=== PATIENT | male | born 1980 | race Caucasian/White ===

== ENCOUNTER → 2016-08-22 | Outpatient (CLI) | payer OTHER ==
[2016-08-22 14:09] LABS: BASO % 0.7 % (0.0-2.0); EOS # 0.1 (0.0-0.7); EOS % 1.8 % (0-4.0); GRAN # 3.4 (1.4-6.5); GRAN % 55.1 % (42.2-75.2); HEMATOCRIT 43.9 % (42.0-52.0); HEMOGLOBIN 14.7 g/dl (13.5-18.0); LYMPH % 32.7 % (20.0-51.0); MEAN CELL VOLUME 91 fl (80.0-100.0); MEAN CORPUSCULAR HEMOGLOBIN 30 pg (27.0-31.0); MEAN CORPUSCULAR HGB CONC 34 g/dl (33.0-37.0); MEAN PLATELET VOLUME 10.1 fl (7.4-10.4); MONO # 0.6 (0.1-0.6); MONO % 9.4 % (1.7-9.3); PLATELET COUNT 195 K/mm3 (130-400); RED BLOOD COUNT 4.84 M/mm3 (4.20-5.60); REDCELL DISTRIBUTION WIDTH-CV 13.1 % (11.5-14.5); WHITE BLOOD COUNT 6.1 K/mm3 (4.8-10.8)
[2016-08-22 14:20] LABS: ADJUSTED CALCIUM 8.9 mg/dL (8.4-10.2); ALBUMIN 4.9 gm/dL (3.5-5.0); CALCIUM 9.6 mg/dL (8.4-10.2); CREATININE, serum 1.09 mg/dL (0.66-1.25); POTASSIUM 4.2 mmol/L (3.4-5.0); TOTAL PROTEIN 8.1 gm/dL (6.4-8.2)
[2016-08-22 14:50] LABS: THYROID STIMULATING HORMONE 2.75 uIU/mL (0.465-4.680)
== END ==
LOC: COL.LAB 13:24
PROVIDERS: Internal Medicine
DX: Z01.89 Encounter for other specified special examinations (principal)

== ENCOUNTER → 2017-01-03 | Outpatient (REF) | LOC: WSOH 17:00 | DX: Z02.89 Encounter for other administrative examinations (principal) ==

== ENCOUNTER 2021-06-12 07:35 | Day surgery (SDC) | payer OTHER ==
[~2021-06-12] VITALS: Ht 188 cm; Wt 120.0 kg
[2021-06-12] VITALS (7 sets, daily range): BP systolic 116–122; BP diastolic 69–80; PULSE 72–76; TEMP 97.3–97.6
[2021-06-12] MEDS ORDERED: MOBIC15 MG PO (09:06)
--- NOTE | 2021-06-12 12:15 | NUR ---
Pt returned to [facility] from PACU. present in room upon return. Pt A&O. VSS-see flowsheet. RUE in sling, ice to shoulder. CMS assessed. Unable to feel touch or make voluntary movements with right hand/fingers. Pts HOB elevated and given water per request. Side rails up with call light in reach. Pt requested lights to be dimmed, wanting to rest.
--- NOTE | 2021-06-12 14:25 | NUR ---
Pt tolerated food and drink without nausea. Block providing pain management. Pt able to void without difficulty. VS remain stable-see flowsheet. IV removed, pressure dressing applied. Pt dressed and right arm remains in sling. Discharge teaching completed, pt and pts verbalized understanding. Pt taken via wheelchair to private vehicle for dc home with driving. Pt sent home with dc teaching/instruction packet. Pt also aware of prescriptions at [facility] for post op pain mgmt.
== END 2021-06-12 14:25 | disposition home or self-care (01) ==
LOC: SDCO 07:35
DX: S46.011A Strain of muscle(s) and tendon(s) of the rotator cuff of right shoulder, initial encounter (principal); J45.998 Other asthma; W00.0XXA Fall on same level due to ice and snow, initial encounter; Y93.01 Activity, walking, marching and hiking
CPT/HCPCS: A4619; J0171; J0330; J0690; J1100; J1885; J2250; J2405; J2704; J3010

== ENCOUNTER → 2021-07-12 | Outpatient (RCR) | payer OTHER ==
[~2021-07-12] MED LIST: MOBIC15 MG PO
== END | disposition home or self-care (01) ==
LOC: PT.GENESIS
DX: M25.511 Pain in right shoulder (principal); Z98.890 Other specified postprocedural states

== ENCOUNTER 2021-07-26 08:00 | Outpatient (RCR) | payer OTHER | END 2021-08-11 | disposition home or self-care (01) | LOC: PT.GENESIS | DX: M25.511 Pain in right shoulder (principal) ==